=== PATIENT | female | born 1955 | race Caucasian/White ===

== ENCOUNTER 2019-01-13 14:55 | Emergency (ER) | payer BC ==
--- OUTSIDE RECORDS SUMMARY | 2019-01-13 15:12 | XMS REPORT | Continuity of Care Document ---
:1955 External Reference #:[id number] Author Name Idalia Anderson Care Team Providers Name Role Phone Kyra De Leon MD Primary Care Physician Unavailable Payers Date Identification Numbers Payment Provider Subscriber Policy Number: [id number] [facility] Yareli Nelson PayID: [id number] [address] [place] [address] Advance Directives Type Date Description Status Comment Other Directive 02/05/2016 Health Care Proxy Current and Verified Problems Active Problems Provider Date Osteoarthritis Kyra De Leon M.D. Onset: 11/16/2015 Note: hip,hands Essential hypertension Kyra De Leon M.D. Onset: 11/16/2015 Non-toxic multinodular goiter Kyra De Leon M.D. Onset: 12/14/2015 Localized, primary osteoarthritis of the Kika Workman M.D. Onset: 12/17/2015 pelvic region and thigh Microscopic hematuria Kyra De Leon M.D. Onset: 01/18/2016 Note: Dr. Farr ( q 6 months ) noted a small benign angioma in the posterior bladder wall Osteopenia Kyra De Leon M.D. Onset: 03/02/2016 Tubular adenoma Kyra De Leon M.D. Onset: 03/05/2018 Cervicovaginal cytology: Low grade squamous Kyra De Leon M.D. Onset: 01/29 intraepithelial lesion Resolved Problems Difficulty breathing Tracee Hilton MD Onset: 12/16/2015 Resolved: 07/26/2017 Family History Date Family Member(s) Observation Comments General Diabetes General Glaucoma General cancer General heart disease : (age 82 Father due to Heart also had testicular Years) Disease cancer Father Hypertension Father Heart Disease Mother due to valvular () - lupus heart disease Mother Hypertension Siblings 1 Sister healthy / hearing impairment First Sister 66 Social History Type Date Description Comments Sex Unknown Education Highest Level Completed, Master's Degree Marital Status Lives With Alone 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 Began age 15 Smoking Status Reviewed: 12/31/18 Former Cigarette Smoker Quit 1982; max 1/2-1ppd max. Began age 15 ETOH Use Currently consumes 7 drinks/ weeks alcohol Tobacco Use Start: Unknown End: Patient is a former quit 32 yrs ago , Unknown smoker 1/2-1PPD x 15 years Exercise Type/Frequency Exercises regularly yoga, hiking 3-5x/week kayaking in summer Allergies, Adverse Reactions, Alerts Description No Known Drug Allergies Medications Active Medications SIG Qnty Indications Ordering Date Provider Shingrix intramuscular x 1 1units Kyra De Leon, 11/18/2018 50mcg/0.5ML then repeat in 4 M.D. Suspension Rec months Valacyclovir HCL 1 by mouth every 12 14tabs B00.9 Kyra De Leon, 2018 hours x 3 days, M.D. 500mg Tablets start warren at the onset of outbreak Felodipine ER Take 1 Tablet By 90tabs Kyra De Leon, 05/27/2018 5mg Mouth Every Day M.D. Tablets ER 24HR Celecoxib once a day per pt as 90caps M19.079 Kyra De Leon, 05/20/2018 200mg needed M.D. Capsules Tylenol Extra 1 by mouth as needed Unknown 12/15/2015 Strength 500mg Tablets Calcium 2 by mouth every day Unknown 500mg Tablets Multi Vitamin Daily 1 by mouth every day Unknown Tablets Latanoprost Place 1 Drop Into Unknown 0.005% Both Eyes Every Solution Night Coricidin HBP four times a day as Unknown Cough/Cold needed as directed 4-30mg Tablets History Medications Malarone once a day start 2 20tabs Kyra 07/01/2018 - 250-100mg days prior to travel Elizabeth De Leon 08/09/2018 Tablets and continue for 7 days after return Vivotif 1 cap every other 4caps [facility] 07/01/2018 - Capsules DR day x 4 doses start Elizabeth De Leon 08/09/2018 2 weeks prior to travel Shingrix intramuscular x 1 1units [facility] 05/20/2018 - 50mcg/0.5ML then repeat in 4 Elizabeth De Leon 11/18/2018 Suspension Rec months Augmentin 1 tab by mouth twice 14tabs [facility] 12/25/2016 - 875-125mg a day Elizabeth De Leon 01/01/2017 Tablets Benzonatate as needed at night 10caps J20.9 Kyra 10/04/2016 - 150mg for cough Elizabeth De Leon 12/06/2016 Capsules Doxycycline Hyclate 1 tablet twice a day 14tabs J20.9 Kyra 10/04/2016 - 100mg x 7 days Elizabeth De Leon 12/06/2016 Tablets Meloxicam Take 1 Tablet Every 60tabs M16.12 Kika Workman, 12/17/2015 - 15mg Tablets Day Elizabeth 07/26/2017 Cyclobenzaprine HCL 1 tablet by mouth q8 40tabs M16.12 Kika Workman, 12/16 - 10mg hours as needed Elizabeth 10/25/2016 Tablets muscle spasms A-Wrewjs-V-Cysteine 1 time daily 6caps Kyra 11/04/2015 - 600mg Elizabeth De Leon 11/04/2015 Capsules Esther Pulse N-Acetylcystine [facility] 11/04/2015 - 250-100-10 CoQ10 PQQ Na2 Elizabeth De Leon 09/04/2017 Amlodipine Besylate Take 1 Tablet Every 90tabs I10 Jone Vicente 11/04/2015 - 2.5mg Day Elizabeth Mata 05/27/2018 Tablets Naproxen Sodium 1-2 tabs by mouth Unknown - 220mg every 12 hours when 03/15/2016 Capsules necessary knee pain, swelling. Multi Vitamin Daily Unknown - 10/04/2016 Tablets Magnesium 1 by mouth every day Unknown - 250mg Tablets 07/26/2017 Zinc daily Unknown - 09/04/2017 Vitamin D3 daily Unknown - 09/04/2017 Immune Support Vitamin daily Unknown - C 07/26/2017 Packet Meloxicam Take 1 Tablet Every Unknown - 15mg Tablets Day 05/20/2018 Loratadine once a day for Unknown - 10mg Capsules allergies as needed 05/20/2018 CBD Oil daily ( started Unknown - 12/16/17) at 08/09/2018 Afrin 12 Hour 2 squirts to each Unknown - 0.05% nostril twice a day 11/18/2018 Solution for no more than 5 days Td(Adult),Unspecified Unknown Injection Immunizations CPT Code Status Date Vaccine Lot # [id number] Given 05/20/2018 Influenza Virus Vaccine, Quadrivalent, Split, [id number] Preservative Free [id number] Given 12/27/2016 Tdap - Tetanus/Diptheria/Acellular Pertussis [id number] Given 03/15/2016 Zoster (Zostavax) [id number] Given 03/15/2016 Influenza Virus Vaccine, Quadrivalent, Split, [id number] Preservative Free [id number] Given 04/14/2009 Tdap - Tetanus/Diptheria/Acellular Pertussis Vital Signs Date Vital Result Comment 12/31/2018 8:59am Height 67 inches 5'7" Weight 160.00 lb Heart Rate 64 /min BP Systolic Sitting 118 mmHg BP Diastolic Sitting 66 mmHg Respiratory Rate 14 /min Pain Level 0 O2 % BldC Oximetry 98 % BMI (Body Mass Index) 25.1 kg/m2 12/12/2018 8:47am Height 67 inches 5'7" Weight 165.00 lb Heart Rate 68 /min BP Systolic 119 mmHg BP Diastolic 74 mmHg O2 % BldC Oximetry 100 % BMI (Body Mass Index) 25.8 kg/m2 12/03/2018 8:45am Height 67 inches 5'7" Weight 165.00 lb Heart Rate 67 /min Body Temperature 97.8 F O2 % BldC Oximetry 98 % BMI (Body Mass Index) 25.8 kg/m2 11/18/2018 9:09am Height 67 inches 5'7" Weight 165.00 lb Heart Rate 59 /min BP Systolic Sitting 140 mmHg BP Diastolic Sitting 88 mmHg Pain Level 5 O2 % BldC Oximetry 99 % BMI (Body Mass Index) 25.8 kg/m2 08/26/2018 2:03pm Height 67 inches 5'7" Weight 163.12 lb Heart Rate 80 /min BP Systolic 121 mmHg BP Diastolic 83 mmHg Body Temperature 99.0 F O2 % BldC Oximetry 93 % BMI (Body Mass Index) 25.5 kg/m2 08/09/2018 1:29pm Height 67 inches 5'7" Weight 167.00 lb Heart Rate 67 /min BP Systolic 145 mmHg BP Diastolic 88 mmHg Body Temperature 97.1 F O2 % BldC Oximetry 97 % BMI (Body Mass Index) 26.2 kg/m2 05/27/2018 8:37am Height 67 inches 5'7" Weight 162.00 lb Heart Rate 62 /min BP Systolic 150 mmHg manual Right arm BP Diastolic 90 mmHg manual Right arm BP Systolic Sitting 145 mmHg Right arm BP Diastolic Sitting 84 mmHg Right arm BP Systolic Standing 143 mmHg Left arm BP Diastolic Standing 90 mmHg Left arm O2 % BldC Oximetry 98 % BMI (Body Mass Index) 25.4 kg/m2 05/20/2018 12:44pm Height 67 inches 5'7" Weight 160.00 lb Heart Rate 64 /min BP Systolic Sitting 140 mmHg BP Diastolic Sitting 64 mmHg O2 % BldC Oximetry 99 % BMI (Body Mass Index) 25.1 kg/m2 01/29/2018 1:14pm Height 67 inches 5'7" Weight 158.00 lb Heart Rate 68 /min BP Systolic 124 mmHg BP Diastolic 80 mmHg O2 % BldC Oximetry 98 % BMI (Body Mass Index) 24.7 kg/m2 01/02/2018 3:22pm Weight 159.00 lb with out shoes Heart Rate 72 /min BP Systolic 146 mmHg Rue reg cuff BP Diastolic 84 mmHg Rue reg cuff BP Systolic Sitting 152 mmHg Lue reg cuff BP Diastolic Sitting 74 mmHg Lue reg cuff BP Systolic Standing 152 mmHg Lue reg cuff BP Diastolic Standing 96 mmHg Lue reg cuff Respiratory Rate 14 /min 11/29/2017 1:13pm Height 67 inches 5'7" Weight 160.25 lb Heart Rate 70 /min BP Systolic 140 mmHg BP Diastolic 90 mmHg O2 % BldC Oximetry 97 % BMI (Body Mass Index) 25.1 kg/m2 11/15/2017 12:56pm Height 67 inches 5'7" Weight 159.00 lb Heart Rate 63 /min BP Systolic Sitting 124 mmHg BP Diastolic Sitting 90 mmHg O2 % BldC Oximetry 98 % BMI (Body Mass Index) 24.9 kg/m2 09/04/2017 11:56am Weight 157.00 lb Heart Rate 68 /min BP Systolic Sitting 123 mmHg BP Diastolic Sitting 84 mmHg O2 % BldC Oximetry 98 % 07/26/2017 10:54am Weight 156.00 lb Heart Rate 66 /min BP Systolic Sitting 148 mmHg BP Diastolic Sitting 84 mmHg O2 % BldC Oximetry 98 % 12/06/2016 10:06am Weight 160.00 lb Heart Rate 67 /min BP Systolic 132 mmHg BP Diastolic 76 mmHg Body Temperature 97.6 F O2 % BldC Oximetry 99 % 10/04/2016 8:51am Weight 161.00 lb Heart Rate 76 /min BP Systolic Sitting 130 mmHg BP Diastolic Sitting 82 mmHg Respiratory Rate 14 /min Body Temperature 97.8 F O2 % BldC Oximetry 98 % 05/16/2016 10:18am Weight 160.00 lb Heart Rate 72 /min BP Systolic Sitting 148 mmHg BP Diastolic Sitting 92 mmHg Body Temperature 97.7 F O2 % BldC Oximetry 99 % 03/15/2016 8:44am Heart Rate 78 /min BP Systolic Sitting 136 mmHg L arm BP Diastolic Sitting 86 mmHg L arm BP Systolic Standing 142 mmHg R arm BP Diastolic Standing 88 mmHg R arm 02/29/2016 9:11am Height 67 inches 5'7" Weight 157.00 lb BP Systolic 126 mmHg BP Diastolic 72 mmHg Body Temperature 98.3 F BMI (Body Mass Index) 24.6 kg/m2 2016 9:38am Height 67 inches 5'7" Weight 161.00 lb Heart Rate 68 /min BP Systolic 120 mmHg BP Diastolic 82 mmHg Respiratory Rate 14 /min O2 % BldC Oximetry 97 % BMI (Body Mass Index) 25.2 kg/m2 01/24/2016 10:35am Height 67 inches 5'7" Weight 161.00 lb Pain Level 4 BMI (Body Mass Index) 25.2 kg/m2 12/17/2015 8:23am Height 67 inches 5'7" Weight 161.00 lb Heart Rate 64 /min BP Systolic 127 mmHg BP Diastolic 79 mmHg BMI (Body Mass Index) 25.2 kg/m2 12/16/2015 2:04pm Height 67 inches 5'7" Weight 160.25 lb Heart Rate 67 /min BP Systolic Sitting 132 mmHg BP Diastolic Sitting 77 mmHg Respiratory Rate 16 /min O2 % BldC Oximetry 98 % BMI (Body Mass Index) 25.1 kg/m2 Neck Circumference in inches 14 11/16/2015 8:27am Weight 163.00 lb Heart Rate 67 /min BP Systolic Sitting 131 mmHg BP Diastolic Sitting 80 mmHg Body Temperature 97.7 F 11/10/2015 8:56am Height 67 inches 5'7" Weight 161.00 lb Heart Rate 74 /min 90 BP Systolic 134 mmHg left arm, reg cuff BP Diastolic 90 mmHg left arm, reg cuff BP Systolic Sitting 132 mmHg right arm, reg cuff BP Diastolic Sitting 92 mmHg right arm, reg cuff BP Systolic Standing 120 mmHg right arm, reg cuff BP Diastolic Standing 92 mmHg right arm, reg cuff Respiratory Rate 20 /min BMI (Body Mass Index) 25.2 kg/m2 11/04/2015 9:26am Weight 163.00 lb Heart Rate 100 /min BP Systolic Sitting 173 mmHg BP Diastolic Sitting 100 mmHg Body Temperature 97.2 F Results Test Date Facility Test Result H/L Range Note Laboratory test 12/12/2018 [facility] Cytology SEE RESULT [address] [place] [address] [phone] Basic Metabolic 06/25/2018 [facility] Sodium 140 mmol/L N 135- [address] [place] [address] [phone] Potassium 4.5 mmol/L N 3.5-5.0 Chloride 105 mmol/L N 101-111 Co2 Carbon Dioxide 30 mmol/L N 22-32 Anion Gap 5 mmol/L N 2-11 Glucose 93 mg/dL N 70-100 Blood Urea Nitrogen 17 mg/dL N 6-24 Creatinine 0.72 mg/dL N 0.51-0.95 BUN/Creatinine Ratio 23.6 High 8-20 Calcium 9.5 mg/dL N 8.6-10.3 Egfr Non- 81.6 >60 Egfr 98.7 >60 2 Hepatitis C Antibody 06/25/2018 [facility] HCV Index < 0.[address] [place] [address] [phone] Hepatitis C Antibody Nonreactive Nonreactive Laboratory test 03/04/2018 [facility] Surgical SEE RESULT [address] [place] [address] Order [phone] Laboratory test 01/29/2018 [facility] Surgical SEE RESULT [address] [place] [place] [address] [phone] Laboratory test 11/15/2017 [facility] Cytology SEE RESULT [address] [place] [place], [place] [id number] [phone] HPV 16, 18/45 11/15/2017 [facility] HPV 16 Negative Negative Genotype [address] Genotype [place], [place] [address] [phone] HPV 18/45 Genotype Negative Negative Basic Metabolic Panel 07/26/2017 [facility] Sodium 140 mmol/L N 133-[address] [place], [place] [address] [phone] Potassium 4.1 mmol/L N 3.5-5.0 Chloride 105 mmol/L N 101-111 Co2 Carbon Dioxide 30 mmol/L N 22-32 Anion Gap 5 mmol/L N 2-11 Glucose 96 mg/dL N 70-100 Blood Urea Nitrogen 15 mg/dL N 6-24 Creatinine 0.77 mg/dL N 0.51-0.95 BUN/Creatinine Ratio 19.5 N 8-20 Calcium 9.4 mg/dL N 8.6-10.3 Egfr Non- 75.7 >60 Egfr 97.4 >60 6 Laboratory test 12/06/2016 [facility] Trichomonas Negative N Negative [address] Vaginalis Rna [place], [place] [address] [phone] GC/Chlamydia 12/06/2016 [facility] Chlamydia Negative N Negative Amplified Rna [address] [place] [address] [phone] Neisseria gonorrhoeae (GC) Rna Negative N Negative Laboratory 12/06/2016 [facility] Gardnerella/Yeast: SEE RESULT 8 test finding [address] Vaginal Dna BELOW [place], [place] [address] [phone] Lipid Profile 02/22/2016 [facility] Triglycerides 138 mg/dL N 9, 10 (Trig/Chol/HDL [address] ) [place], [place] [id number] [phone] Cholesterol 216 mg/dL N 11 HDL Cholesterol 63.4 mg/dL N 12 LDL Cholesterol 125 mg/dL N 13 Urinalysis Profile 11/05/2015 [facility] Urine Color Yellow N [address] [place] [address] [phone] Urine Appearance Clear N Urine Specific [place] 1.018 N 1.010-1.030 Urine pH 7.0 N 5-9 Urine Urobilinogen Negative N Negative Urine Ketones Negative N Negative Urine Protein Negative N Negative Urine Leukocytes Negative N Negative Urine Blood 1+ Abnormal Negative Urine Nitrite Negative N Negative Urine Bilirubin Negative N Negative Urine Glucose Negative N Negative Urine White Blood Cell Absent N Absent Urine Red Blood Cell 2+(6-10/hpf) Abnormal Absent Urine Bacteria Absent N Absent Urine Squamous Epithelial Cell Present Abnormal Absent Laboratory test 11/05/2015 [facility] Hemoglobin A1c 5.2 % N Less than [address] (Glyco HGB) 6.0 [place] [address] [phone] TSH (Thyroid Stim Horm) 1.76 ?IU/mL N 0.34-5.60 15 Comp Metabolic Panel 11/05/2015 [facility] Sodium 139 mmol/L N 133-[address] [place] [address] [phone] Potassium 4.3 mmol/L N 3.5-5.0 Chloride 104 mmol/L N 101-111 Co2 Carbon Dioxide 31 mmol/L N 22-32 Anion Gap 4 mmol/L N 2-11 Glucose 89 mg/dL N 70-100 Blood Urea Nitrogen 18 mg/dL N 6-24 Creatinine 0.77 mg/dL N 0.51-0.95 BUN/Creatinine Ratio 23.4 High 8-20 Calcium 9.5 mg/dL N 8.6-10.3 Total Protein 6.8 g/dL N 6.4-8.9 Albumin 4.6 g/dL N 3.2-5.2 Globulin 2.2 g/dL N 2-4 Albumin/Globulin Ratio 2.1 N 1-3 Total Bilirubin 0.60 mg/dL N 0.2-1.0 Alkaline Phosphatase 69 U/L N 34-104 Alt 12 U/L N 7-52 Ast 17 U/L N 13-39 Egfr Non- 76.2 N >60 Egfr 98.0 N >60 16 Laboratory test 11/05/2015 [facility] Erythrocyte Sed 10 mm/Hr N 0-30 [address] [place] [address] [phone] Anti Nuclear Antibody 0.7 U N 18 Rheumatoid Factor <15 IU/mL N <15 19 CBC Auto Diff 11/05/2015 [facility] White Blood 3.9 10^3/uL N 3.5-10.[address] [place] [address] [phone] Red Blood Count 4.24 10^6/uL N 4.0-5.4 Hemoglobin 13.6 g/dL N 12.0-16.0 Hematocrit 40 % N 35-47 Mean Corpuscular Volume 95 fL N 80-97 Mean Corpuscular Hemoglobin 32 pg High 27-31 Mean Corpuscular HGB Conc 34 g/dL N 31-36 Red Cell Distribution Width 13 % N 10.5-15 Platelet Count 262 10^3/uL N 150-450 Mean Platelet Volume 8 um3 N 7.4-10.4 Abs Neutrophils 1.9 10^3/uL N 1.5-7.7 Abs Lymphocytes 1.5 10^3/uL N 1.0-4.8 Abs Monocytes 0.3 10^3/uL N 0-0.8 Abs Eosinophils 0.1 10^3/uL N 0-0.6 Abs Basophils 0 10^3/uL N 0-0.2 Abs Nucleated RBC 0.01 10^3/uL N Granulocyte % 49.5 % N 38-83 Lymphocyte % 38.2 % N 25-47 Monocyte % 8.4 % N 1-9 Eosinophil % 3.1 % N 0-6 Basophil % 0.8 % N 0-2 Nucleated Red Blood Cells % 0.3 N 1 SEE RESULT BELOW Name: YARELI NELSON : [address]: Kennedy Amaya MD Acct: [id number] Unit: [id number] AGE: 63 Location: [facility] Re12/12/18 SEX: F Status: REG REF SPEC: [id number] JAYRO: 12/12/18 [facility] DR: Kennedy Amaya MD REQ: [id number] RECD: 12/12/18 STATUS: SOUT _ ORDERED: TP IMAGE ANALYS, HPV/Thin Prep COMMENTS: [id number] Negative for Intraepithelial lesion or Malignancy Date Time Test Result Flag (u) Normal Range 12/12/18 0852 HPV RNA POSITIVE An Negative The high-risk HPV types detected by the assay include: 16, 18, 31, 33, 35, 39, 45, 51, 52, 56, 58, 59, 66, and 68. A. Ectocervical/Endocervical Specimen Adequacy: Satisfactory of evaluation Transformation zone component identified Patient Information: HPV: High risk HPV RNA testing regardless of pap results. Actual Specimen Date: 12/12/18 ?: N Post Menopausal?: Y Hysterectomy?: N Previous Abnormal Pap Smears?:Y If Yes, enter Diagnosis: Low grade squamous intraepithelial lesion. Signed by and Reported on: ABIMAEL Giles (ASCP) 1410 This Pap test was evaluated with the assistance of the LeadPointPrep Test Imaging System. Due to cytologic findings at the gun stocker microscope, comprehensive manual rescreening by a Truck Driver'S Offsider may be required. The Pap Smear is a screening test designed to aid in the detection of premalignant and malignant conditions of the uterine cervix. It is not a diagnostic procedure and should not be used as the sole means of detecting cervical cancer. Both false- positive and false- negative reports do occur. Depending on your risk status, a Pap smear should be obtained and evaluated every 1-3 years. END OF REPORT DEPARTMENT OF PATHOLOGY, [address] [place] [address] Frankie James M.D. Director [facility] # [id number] 2 Because ethnic data is not always readily available, this report includes an eGFR for both -Americans and non- Americans. The National Kidney Disease Education Program (NKDEP) does not endorse the use of the MDRD equation for patients that are not between the ages of 18 and 70, are , have extremes of body size, muscle mass, or nutritional status, or are non- or non-. According to the National Kidney Foundation, irrespective of diagnosis, the stage of the disease is based on the level of kidney function: Stage Description GFR(mL/min/1.73 m(2)) 1 Kidney damage with normal or decreased GFR 90 2 Kidney damage with mild decrease in GFR 60-89 3 Moderate decrease in GFR 30-59 4 Severe decrease in GFR 15-29 5 Kidney failure <15 (or dialysis) 3 SEE RESULT BELOW Name: YARELI NELSON : [address]: John Odell MD Acct: [id number] Unit: [id number] AGE: 63 Location: ENDO Re03/04/18 SEX: F Status: DEP REF SPEC: [id number] JAYRO: 03/04/18- [facility] DR: John Odell MD REQ: [id number] RECD: 03/04/18 STATUS: JT HERNANDEZ DR: Kyra De Leon MD _ ORDERED: LEVEL 4/2 FINAL DIAGNOSIS 1. Colon, at 30 cm, biopsy: -- Tubular adenoma. -- No high grade dysplasia or malignancy. 2. Colon, at 15 cm, biopsy: -- Hyperplastic polyp. CLINICAL HISTORY History of polyps POST-OPERATIVE DIAGNOSIS Colonoscopy: to hepatic flexure; no colon tone; too large loop; polyp at 15 cm ? biopsy; at 30 cm ? snare; patient pushing GROSS DESCRIPTION 1. The specimen is received in formalin labeled, Polyp at 30 cm, and consists of two gutierrez-pink irregular to polypoid soft tissue fragments measuring 0.3 x 0.2 x 0.1 cm and 0.4 x 0.3 x 0.2 cm which are submitted entirely in one cassette. 2. The specimen is received in formalin labeled, Biopsy Polyp at 15 cm, and consists of a 0.4 x 0.3 x 0.2 cm gutierrez-pink polypoid soft tissue fragment which is submitted entirely in one cassette. Signed by and Reported on: Nida Xinog MD 03/05/18 1229 END OF REPORT DEPARTMENT OF PATHOLOGY, [address] [place] [address] Frankie James M.D. Director [facility] # [id number] 4 SEE RESULT BELOW Name: YARELI NELSON : [address]: Kennedy Amaya MD Acct: [id number] Unit: [id number] AGE: 62 Location: [facility] Re01/29/18 SEX: F Status: REG REF SPEC: [id number] JAYRO: 01/29/18-[address] [facility] [address]: Kennedy Amaya MD REQ: [id number] RECD: 01/29/184014 STATUS: SOUT _ ORDERED: LEVEL 4/2 COMMENTS: [id number] FINAL DIAGNOSIS 1. Uterus, cervix, 4:00, biopsy: -- Cervical tissue with HPV-related viral cytopathic effect and low-grade squamous dysplasia (CHERISE-1/LSIL). 2. Uterus, endocervix, curettage: -- Benign endocervical mucosa with no significant pathologic abnormalities. PRE-OPERATIVE DIAGNOSIS Low grade pap 11/2017, positive high risk human papilloma virus GROSS DESCRIPTION 1. The specimen is received in formalin labeled, 4:00, and consists of two white red irregular soft tissue fragments averaging 0.3 x 0.3 x 0.2 cm admixed with scant translucent mucus, which are filtered and entirely submitted in one cassette. 2. The specimen is received in formalin labeled, ECC, and consists of a 0.8 x 0.6 by up to 0.3 cm aggregate of opalescent mucus admixed with scant gutierrez-pink irregular soft tissue fragments, which is filtered and entirely submitted in one cassette. Signed by and Reported on: Nida Xiong MD 01/30/18 1121 END OF REPORT DEPARTMENT OF PATHOLOGY, [address] [place] [address] Frankie James M.D. Director [facility] # [id number] 5 SEE RESULT BELOW Name: YARELI NELSON : [address]: Kyra De Leon MD Acct: [id number] Unit: [id number] AGE: 62 Location: [facility] Re11/15/17 SEX: F Status: REG REF SPEC: [id number] JAYRO: 11/15/17-[address] [facility] [address]: Kyra De Leon MD REQ: [id number] RECD: 11/16/17 STATUS: SOUT _ ORDERED: TP IMAGE ANALYS, DIRECTOR MANUFACTURING ENGINEERING PHYS INTERP, HPV/Thin Prep, HPV 16/18 GENE COMMENTS: [id number] EPITHELIAL CELL ABNORMALITIES Low grade squamous intraepithelial lesion (LSIL) A. Ectocervical/Endocervical Specimen Adequacy: Satisfactory of evaluation Transformation zone component cannot be definitely identified due to presence of atrophy or other hormonal changes Patient Information: HPV: High risk HPV RNA testing regardless of pap results. HPV 16/18 Genotype Reflex Actual Specimen Date: 11/15/17 Post Menopausal?: Y Date Time Test Result Flag (u) Normal Range 11/15/17 1416 @ HPV RNA RFLX GE POSITIVE An Negative @ @ The high-risk HPV types detected by the assay include: 16, @ 18, 31, 33, 35, 39, 45, 51, 52, 56, 58, 59, 66, and 68. Signed by and Reported on: Frankie James MD 11/02 1478 This Pap test was evaluated with the assistance of the LeadPointPrep Test Imaging System. Due to cytologic findings at the gun stocker microscope, comprehensive manual rescreening by a Truck Driver'S Offsider may be required. The Pap Smear is a screening test designed to aid in the detection of premalignant and malignant conditions of the uterine cervix. It is not a diagnostic procedure and should not be used as the sole means of detecting cervical cancer. Both false- positive and false- negative reports do occur. Depending on your risk status, a Pap smear should be obtained and evaluated every 1-3 years. END OF REPORT DEPARTMENT OF PATHOLOGY, [address] [place] [address] Frankie James M.D. Director [facility] # [id number] 6 Because ethnic data is not always readily available, this report includes an eGFR for both -Americans and non- Americans. The National Kidney Disease Education Program (NKDEP) does not endorse the use of the MDRD equation for patients that are not between the ages of 18 and 70, are , have extremes of body size, muscle mass, or nutritional status, or are non- or non-. According to the National Kidney Foundation, irrespective of diagnosis, the stage of the disease is based on the level of kidney function: Stage Description GFR(mL/min/1.73 m(2)) 1 Kidney damage with normal or decreased GFR 90 2 Kidney damage with mild decrease in GFR 60-89 3 Moderate decrease in GFR 30-59 4 Severe decrease in GFR 15-29 5 Kidney failure <15 (or dialysis) 7 [id number] GC/Chlamydia Source?: Endocervical Trichomonas Source: Endocervical 8 SEE RESULT BELOW Name: YARELI NELSON : [address]: Kyra De Leon MD Acct: [id number] Unit: [id number] AGE: 61 Location: [facility] Re12/06/16 SEX: F Status: REG REF SPEC: [id number] JAYRO: 12/06/16-10[address] [facility] [address]: Kyra De Leon MD REQ: [id number] RECD: 12/06/[id number] STATUS: COMP _ SOURCE: VAGINAL SPDESC: ORDERED: Jeanmarie,Yeast DNA COMMENTS: [id number] Procedure Result Reported Site Gardnerella/Yeast: Vaginal DNA Final 12/07/16- 1258 ML Organism 1 Negative Gardnerella Organism 2 Negative Marleni The presence of G. vaginalis, although suggestive, is not diagnostic for bacterial vaginosis. Results should be interpreted in conjuction with other clinical and laboratory data available. Women with vaginal discharge should be evaluated for risk factors of cervicitis and pelvic inflammatory disease, toxic shock syndrome (S.aureus), and if present, evaluated for organisms not included in this assay such as N. gonorrhoeae, C. trachomatis, Mobiluncus, Mycoplasma and/or Prevotella. Mixed infections may occur. The performance of this test on patient specimens collected during or immediately after antimicrobial therapy is unknown. The presence or absence of Marleni species, or G. vaginalis cannot be used as a test for therapeutic success or failure. * ML - MAIN LAB ([facility]) . END OF REPORT * ML=Testing performed at Main Lab DEPARTMENT OF PATHOLOGY, [address] [place] [address] Frankie James M.D. Director [facility] # [id number] 9 FASTING 10 Desirable <150 Borderline high 150-199 High 200-499 Very High >500 11 Desirable <200 Borderline high 200-239 High >239 12 Low <40 Desirable: 40-60 High: >60 13 Desirable: <100 mg/dL Near Optimal: 100-129 mg/dL Borderline High: 130-159 mg/dL High: 160-189 mg/dL Very High: >189 mg/dL 14 Therapeutic target for the treatment of diabetes Mellitus patients is <7% HBA1C, and in selective patients <6.0%.Please refer to [place] [employer] Association Diabetic care guidelines for further information. 15 FASTING 10 HOUR 16 Because ethnic data is not always readily available, this report includes an eGFR for both -Americans and non- Americans. The National Kidney Disease Education Program (NKDEP) does not endorse the use of the MDRD equation for patients that are not between the ages of 18 and 70, are , have extremes of body size, muscle mass, or nutritional status, or are non- or non-. According to the National Kidney Foundation, irrespective of diagnosis, the stage of the disease is based on the level of kidney function: Stage Description GFR(mL/min/1.73 m(2)) 1 Kidney damage with normal or decreased GFR 90 2 Kidney damage with mild decrease in GFR 60-89 3 Moderate decrease in GFR 30-59 4 Severe decrease in GFR 15-29 5 Kidney failure <15 (or dialysis) 17 FASTING 10 HOUR 18 REFERENCE VALUE <=1.0 (Negative) Test Performed by: [address] [address] [employer] Receiver: Ryan Olivares II, M.D., Ph.D. 19 Test Performed by: [facility] [address] [place] [address] [employer] Receiver: Ryan Olivares II, M.D., Ph.D. Procedures Date Code Description Status 09/23/2018 [id number] Mammogram Completed 03/04/2018 [id number] Colonoscopy Completed 01/29/2018 81506 Colposcopy W/Biopsy Cervix/Endocervical Curettage Completed 01/02/2018 86616 EKG Tracing & Interpretation Completed 11/19/2017 64344 ECHO Transthoracic, Real-Time 2D With Doppler And Completed Color Flow 11/19/2017 16154 ECHO Transthoracic, Real-Time 2D With Doppler And Completed Color Flow 08/29/2017 [id number] Mammogram Completed 07/26/2017 91757 EKG Tracing & Interpretation Completed 06/14/2016 [id number] Mammogram Completed 03/02/2016 [id number] Bone Mineral Density Test Completed 01/17/2016 19305 Sleep Study Unattended,HRT Rate,Oxygen Sat,Resp Completed Effort/Airflow 11/10/2015 91885 EKG Tracing & Interpretation Completed 11/04/2015 33931 EKG Tracing & Interpretation Completed 02/16/2015 [id number] Mammogram Completed 02/16/2011 [id number] Colonoscopy Completed Encounters Type Date Location Provider Dx Diagnosis Office Visit 12/12[facility] Amaya MD R87.612 Low grade 8:30a [facility] intrepith lesion cyto smr crvx (LGSIL) R87.810 Cervical high risk HPV Dna test positive Office Visit 12/03/2018 [facility] 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 ankle and foot Office Visit 11/18/2018 [facility] Internal Kyra Z00.00 Encntr for general 9:10a Ezekiel De Leon M.D. adult medical exam w/o abnormal findings R87.612 Low grade intrepith lesion cyto smr crvx (LGSIL) M79.672 Pain in left foot B00.9 Herpesviral infection, unspecified Office Visit 08/26/2018 [facility] Internal Jone Vicente J06.9 Acute upper 2:00p Gudelia Mata M.D. respiratory infection, unspecified Office Visit 08/09/2018 [facility] Internal Kristen Gonzalez, M54.12 Radiculopathy, 1:20p Gudelia JERRY cervical region I10 Essential (primary) hypertension Office Visit 05/20/2018 [facility] Kyra I10 Essential 12:10p Gudelia De Leon M.D. (primary) hypertension M13.0 Polyarthritis, unspecified Z23 Encounter for immunization Z11.59 Encounter for screening for other viral diseases Z02.9 Encounter for administrative examinations, unspecified Office Visit 01/02/2018 Lance Conrad I47.1 Supraventricular 3:00p [facility], tachycardia [facility] FAC R94.39 Abnormal result of other cardiovascular function study Office Visit 11/29/2017 1:00p [facility] Amaya, R87.612 Low grade [facility] JERRY intrepith lesion cyto smr crvx (LGSIL) R87.810 Cervical high risk HPV Dna test positive Office Visit 11/15/2017 [facility] Internal Kyra Z00.01 Encounter for 1:00p Gudelia De Leon M.D. general adult medical exam w abnormal findings Z12.4 Encounter for screening for malignant neoplasm of cervix R01.1 Cardiac murmur, unspecified M79.671 Pain in right foot M79.672 Pain in left foot Office 09/04/2017 [facility] Kyra I10 Essential Visit 12:10p Gudelia De Leon M.D. (primary) hypertension Office 07/26/2017 [facility] Kyra Z01.818 Encounter for Visit 11:10a Gudelia De Leon M.D. other preprocedural examination H02.403 Unspecified ptosis of bilateral eyelids I10 Essential (primary) hypertension J06.9 Acute upper respiratory infection, unspecified M16.12 Unilateral primary osteoarthritis, left hip E04.2 Nontoxic multinodular goiter Z12.31 Encntr screen mammogram for malignant neoplasm of breast Office Visit 12/06/2016 [facility] Kyra Z11.3 Encntr screen 10:10a Gudelia De Leon M.D. for infections w sexl mode of transmiss R21 Rash and other nonspecific skin eruption Office Visit 10/04/2016 [facility] Kyra J20.9 Acute 8:50a Gudelia De Leon M.D. bronchitis, unspecified R05 Cough Office Visit 03/15/2016 [facility] Internal Nurse Visit I10 Essential 8:30a Gudelia Mullen (primary) hypertension Z23 Encounter for immunization Office Visit 02/29/2016 [facility] Internal Kyra Z00.01 Encounter for 9:10a Medicine-Jessica De Leon M.D. general adult medical exam w abnormal findings I10 Essential (primary) hypertension Z13.820 Encounter for screening for osteoporosis N64.59 Other signs and symptoms in breast Office Visit 2016 9:30a Pulmonology And Tracee R06.83 Snoring Sleep [facility] Office Visit 01/24/2016 9:45a Orthopedic Kika Ji, M16.12 Unilateral Services Of Jordy Johnson primary osteoarthritis, left hip M25.552 Pain in left hip Office Visit 12/17/2015 Orthopedic Kika M16.12 Unilateral primary 8:00a [facility] Elizabeth Workman osteoarthritis, left C.M.A. hip M16.11 Unilateral primary osteoarthritis, right hip M25.551 Pain in right hip M25.552 Pain in left hip M79.672 Pain in left foot M79.671 Pain in right foot Office Visit 12/16/2015 2:00p Pulmonology And Tracee R06.83 Snoring Sleep [facility] Office Visit 11/16/2015 8:30a [facility] Internal Kyra I10 Essential Medicine - Israel De Leon M.D. 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 M16.9 Osteoarthritis of hip, unspecified I73.9 Peripheral vascular disease, unspecified M70.42 Prepatellar bursitis, left knee Office Visit 11/10/2015 9:00a [facility] Barbara Xiong Dizziness and Of Physician Obstetrician AT [facility] MD Rasta, giddiness FAC, FSCAI I47.1 Supraventricular tachycardia I10 Essential (primary) hypertension Office Visit 11/04/2015 9:50a [facility] Internal KyraInga Vasquez Dizziness and Medicine - Israel Johnson giddiness M25.552 Pain in left hip R73.01 Impaired fasting glucose R31.2 Other microscopic hematuria R06.83 Snoring M79.643 Pain in unspecified hand I10 Essential (primary) hypertension Plan of Treatment Future Appointment(s):01/08/2019 10:00 am - Blaine Garcia MD at [facility]01/20/2019 1:15 pm - Kika Workman M.D. at [facility]05/22/2019 10:10 am - Kyra De Leon M.D. at [facility] Internal Medicine - Ccmob12/31/2018 - Blaine Cheney M.D.M19.172 Post-traumatic osteoarthritis, left ankle and footFollow up:dr garcia left [facility]
[2019-01-13 15:47] LABS: ABS Eosinophils 0.1 10^3/ul (0-0.6); ABS Lymphocytes 1.9 10^3/ul (1.0-4.8); ABS Monocytes 0.5 10^3/ul (0-0.8); ABS Neutrophils 3.3 10^3/ul (1.5-7.7); Eosinophil % 1.4 %; Hematocrit 39 % (35-47); Hemoglobin 13.8 g/dL (12.0-16.0); Mean Corpuscular HGB Conc 35 g/dL (31-36); Mean Corpuscular Hemoglobin 33 pg (27-31); Mean Corpuscular Volume 94 fL (80-97); Mean Platelet Volume 7.3 fL (7.4-10.4); Platelet Count 262 10^3/uL (150-450); Red Blood Count 4.21 10^6 /uL (3.70-4.87); Red Cell Distribution Width 13 % (10-15); White Blood Count 5.9 10^3/uL (3.5-10.8)
[2019-01-13 16:18] LABS: Albumin 4.5 g/dL (3.2-5.2); BUN/Creatinine Ratio 24.4 (8-20); Calcium 9.9 mg/dL (8.6-10.3); EGFR African American 84.9 (>60); EGFR Non-African American 70.2 (>60); Globulin 2.3 g/dL (2-4); Potassium 4.1 mmol/L (3.5-5.0); Total Bilirubin 0.6 mg/dL (0.2-1.0); Total Protein 6.8 g/dL (6.4-8.9)
--- NOTE | 2019-01-13 18:15 | ED ---
HPI Cardiac - HPI Summary HPI Summary: Patient is a 63 y/o F presenting to ED with complaints of left anterior chest pain. She reports that she had one episode yesterday of the chest pain which lasted 10-15 minutes. Radiation of pain down left arm is noted as well. Chest pain was not pleuritic. Today, she had another episode around 0430 this morning , noting she was awoken from sleep with Sx. Episode lasted 20 minutes and spontaneously resolved. SOB is denied. She notes that she had left calf pain as well which is resolved. No cough, no fevers reported. She denies FMHx of SC. No Hx of HLD or diabetes, but endorses Hx of HTN. Patient does not report chills, erythema of eyes, sore throat, abdominal pain, N/V, dysuria, hematuria, myalgia , edema, rash, or dizziness. On triage, pain is rated 0/10, stress is noted to aggravate Sx. Home medications and allergies are reviewed. - History of Current Complaint Chief Complaint: EDChestPainROMI Stated Complaint: CHEST PAIN/LT ARM NUMBNESS Time Seen by Provider: 01/13/19 15:27 Hx Obtained From: Patient Onset/Duration: Resolved Timing: Intermittent, Lasting Minutes Current Severity: None Pain Intensity: 0 Pain Scale Used: 0-10 Numeric Chest Pain Location: Left Anterior Chest Pain Radiates: Yes Chest Pain Radiates To:: Arm - left Aggravating Factor(s): Nothing Alleviating Factor(s): Nothing Associated Signs and Symptoms: Positive: Chest Pain, Calf Pain/Swelling, Other: - does not report chills, erythema of eyes, sore throat, abdominal pain, N/V, dysuria, hematuria, myalgia, edema, rash, or dizziness.. Negative: Dizziness, Shortness of Breath, Fever, Chills, Nausea, Cough, Productive Cough, Nonproductive Cough, Abdominal Pain, Vomiting - Allergy/Home Medications Allergies/Adverse Reactions: Allergies Allergy/AdvReac Type Severity Reaction Status Date / Time No Known Allergies Allergy Verified 01/13/19 15:07 Home Medications: Home Medications Felodipine (NF) [Plendil (NF)] 5 mg PO DAILY PRN 01/13/19 [History Confirmed ] celeCOXIB CAP* [CeleBREX CAP*] 100 mg PO DAILY PRN 01/13/19 [History Confirmed 01/13/19] PMH/Surg Hx/FS Hx/Imm Hx Endocrine/Hematology History: Denies: Hx Diabetes Cardiovascular History: Reports: Hx Hypertension Denies: Hx Hypercholesterolemia, Hx Pacemaker/ICD History: Denies: Hx Renal Disease Musculoskeletal History: Denies: Hx Osteoporosis Sensory History: Denies: Hx Hearing Aid Psychiatric History: Denies: Hx Panic Disorder - Cancer History Hx Chemotherapy: No Hx Radiation Therapy: No - Surgical History Surgery Procedure, Year, and Place: APPENDECTOMY - Immunization History Immunizations Up to Date: Yes Infectious Disease History: No Infectious Disease History: Reports: Traveled Outside the [place] in Last 30 Days - [place] - Family History Known Family History: Negative: Cardiac Disease - Social History Alcohol Use: Daily Alcohol Amount: 1 cocktail a night or half a bottle of wine Substance Use Type: Reports: Marijuana Substance Use Comment - Amount & Last Used: 01/11/19 Smoking Status (MU): Former Smoker Review of Systems Negative: Fever, Chills Negative: Erythema Negative: Sore Throat Positive: Chest Pain Negative: Shortness Of Breath, Cough Negative: Abdominal Pain, Vomiting, Nausea Negative: dysuria, hematuria Positive: Myalgia - positive - calf pain on left. Negative: Edema Negative: Rash Neurological: Other - negative - dizziness All Other Systems Reviewed And Are Negative: Yes Physical Exam - Summary Physical Exam Summary: Constitutional: Well-developed, Well-nourished, Alert. (-) Distressed Skin: Warm, Dry HENT: Normocephalic; Atraumatic Eyes: Conjunctiva normal Neck: Musculoskeletal ROM normal neck. (-) JVD, (-) Stridor, (-) Tracheal deviation Cardio: Rhythm regular, rate normal, Heart sounds normal; Intact distal pulses; The pedal pulses are 2+ and symmetric. Radial pulses are 2+ and symmetric. (-) Murmur Pulmonary/Chest wall: Effort normal. (-) Respiratory distress, (-) Wheezes, (-) Rales Abd: Soft, (-) tenderness, (-) Distension, (-) Guarding, (-) Rebound Musculoskeletal: (-) Edema, calfs are symmetrical and non-tender. Lymph: (-) Cervical adenopathy Neuro: Alert, Oriented x3 Psych: Mood and affect Normal Triage Information Reviewed: Yes Vital Signs On Initial Exam: Initial Vitals Temp Pulse Resp BP Pulse Ox 98.1 F 83 18 145/77 98 01/13/19 15:03 01/13/19 15:03 01/13/19 15:03 01/13/19 15:03 01/13/19 15:03 Vital Signs Reviewed: Yes Diagnostics - Vital Signs Vital Signs Temp Pulse Resp BP Pulse Ox 01/13/19 17:03 66 16 157/97 98 01/13/19 16:23 76 22 149/94 95 01/13/19 16:00 76 17 92 01/13/19 15:53 74 16 139/92 94 01/13/19 15:25 76 18 95 01/13/19 15:23 75 15 150/93 96 01/13/19 15:03 98.1 F 83 18 145/77 98 - Laboratory Lab Results: Lab Results 01/13/19 01/13/19 01/13/19 Range/Units 15:37 15:37 15:37 WBC 5.9 (3.5-10.8) 10^3/uL RBC 4.21 (3.70-4.87) 10^6 /uL Hgb 13.8 (12.0-16.0) g/dL Hct 39 (35-47) % MCV 94 (80-97) fL MCH 33 H (27-31) pg MCHC 35 (31-36) g/dL RDW 13 (10-15) % Plt Count 262 (150-450) 10^3/uL MPV 7.3 L (7.4-10.4) fL Neut % (Auto) 56.9 % Lymph % (Auto) 32.0 % [place] % (Auto) 9.2 % Eos % (Auto) 1.4 % Baso % (Auto) 0.5 % Absolute Neuts (auto) 3.3 (1.5-7.7) 10^3/ul Absolute Lymphs (auto) 1.9 (1.0-4.8) 10^3/ul Absolute Monos (auto) 0.5 (0-0.8) 10^3/ul Absolute Eos (auto) 0.1 (0-0.6) 10^3/ul Absolute Basos (auto) 0.0 (0-0.2) 10^3/ul Absolute Nucleated RBC 0.0 10^3/ul Nucleated RBC % 0.0 D-Dimer, Quantitative (Less Than 230) ng/mL Sodium 140 (135-145) mmol/L Potassium 4.1 (3.5-5.0) mmol/L Chloride 106 (101-111) mmol/L Carbon Dioxide 27 (22-32) mmol/L Anion Gap 7 (2-11) mmol/L BUN 20 (6-24) mg/dL Creatinine 0.82 (0.51-0.95) mg/dL Est GFR ( Amer) 84.9 (>60) Est GFR (Non-Af Amer) 70.2 (>60) BUN/Creatinine Ratio 24.4 H (8-20) Glucose 101 H (70-100) mg/dL Lactic Acid 0.4 L (0.5-2.0) mmol/L Calcium 9.9 (8.6-10.3) mg/dL Total Bilirubin 0.60 (0.2-1.0) mg/dL AST 19 (13-39) U/L ALT 19 (7-52) U/L Alkaline Phosphatase 79 (34-104) U/L Troponin I 0.00 (<0.04) ng/mL Total Protein 6.8 (6.4-8.9) g/dL Albumin 4.5 (3.2-5.2) g/dL Globulin 2.3 (2-4) g/dL Albumin/Globulin Ratio 2.0 (1-3) / Range/Units 15:37 WBC (3.5-10.8) 10^3/uL RBC (3.70-4.87) 10^6 /uL Hgb (12.0-16.0) g/dL Hct (35-47) % MCV (80-97) fL MCH (27-31) pg MCHC (31-36) g/dL RDW (10-15) % Plt Count (150-450) 10^3/uL MPV (7.4-10.4) fL Neut % (Auto) % Lymph % (Auto) % [place] % (Auto) % Eos % (Auto) % Baso % (Auto) % Absolute Neuts (auto) (1.5-7.7) 10^3/ul Absolute Lymphs (auto) (1.0-4.8) 10^3/ul Absolute Monos (auto) (0-0.8) 10^3/ul Absolute Eos (auto) (0-0.6) 10^3/ul Absolute Basos (auto) (0-0.2) 10^3/ul Absolute Nucleated RBC 10^3/ul Nucleated RBC % D-Dimer, Quantitative < 200 (Less Than 230) ng/mL Sodium (135-145) mmol/L Potassium (3.5-5.0) mmol/L Chloride (101-111) mmol/L Carbon Dioxide (22-32) mmol/L Anion Gap (2-11) mmol/L BUN (6-24) mg/dL Creatinine (0.51-0.95) mg/dL Est GFR ( Amer) (>60) Est GFR (Non-Af Amer) (>60) BUN/Creatinine Ratio (8-20) Glucose (70-100) mg/dL Lactic Acid (0.5-2.0) mmol/L Calcium (8.6-10.3) mg/dL Total Bilirubin (0.2-1.0) mg/dL AST (13-39) U/L ALT (7-52) U/L Alkaline Phosphatase (34-104) U/L Troponin I (<0.04) ng/mL Total Protein (6.4-8.9) g/dL Albumin (3.2-5.2) g/dL Globulin (2-4) g/dL Albumin/Globulin Ratio (1-3) Result Diagrams: 01/13/19 15:37 01/13/19 15:37 Lab Statement: Any lab studies that have been ordered have been reviewed, and results considered in the medical decision making process. - Radiology CXR Radiology Interpretation Completed By: Radiologist Summary of Radiographic Findings: CXR IMPRESSION: NO ACTIVE CARDIOPULMONARY DISEASE. This report was reviewed by Dr. Jacob. - Ultrasound VENOUS DOPPLER STUDY LLE Ultrasound Interpretation Completed By: Radiologist Summary of Ultrasound Findings: VENOUS DOPPLER STUDY LLE IMPRESSION: NO LEFT LOWER EXTREMITY DEEP VEIN THROMBOSIS. THIS REPORT WAS REVIEWED BY DR. JACOB. - EKG 1500 Cardiac Rate: NL - RATE OF 85 BPM EKG Rhythm: Sinus Rhythm Summary of EKG Findings: EKG showed sinus rhythm with rate of 85 BPM, ventricular premature complex, no STEMI. Disposition - Course Course Of Treatment: Patient is a 63 y/o F presenting to ED with complaints of left anterior chest pain. She reports that she had one episode yesterday of the chest pain which lasted 10-15 minutes. Radiation of pain down left arm is noted as well. Chest pain was not pleuritic. Today, she had another episode around 0430 this morning, noting she was awoken from sleep with Sx. Episode lasted 20 minutes and spontaneously resolved. SOB is denied. She notes that she had left calf pain as well which is resolved. No cough, no fevers reported. She denies FMHx of SC. No Hx of HLD or diabetes, but endorses Hx of HTN. On physical exam, symmetric calves and no tenderness noted. CXR IMPRESSION: NO ACTIVE CARDIOPULMONARY DISEASE. VENOUS DOPPLER STUDY LLE IMPRESSION: NO LEFT LOWER EXTREMITY DEEP VEIN THROMBOSIS. EKG showed sinus rhythm with rate of 85 BPM, ventricular premature complex, no STEMI. Labs showed MCH 33, MPV 7.3, D-Dimer < 200, BUN/creatinine ratio 24.4, glucose 101, lactic acid 0.4. Trop 0. [address] Romero, states that the patient can have outpatient stress test. 1806 Dr. Romero notes that the patient should take felodipine daily, stop taking your celebrex. Patient to be discharged to home and to have outpatient stress test in next 48 hours and PCP follow up. - Diagnoses Provider Diagnoses: Chest pain - Physician Notifications Discussed Care Of Patient With: Carole Romero Time Discussed With Above Provider: 17:25 Instructed by Provider To: Other - [address] Romero, states that the patient can have outpatient stress test. 180 Dr. Romero notes that the patient should take felodipine daily, stop taking your celebrex. Discharge - Sign-Out/Discharge Documenting (check all that apply): Patient Departure - discharge Patient Received Moderate/Deep Sedation with Procedure: No - Discharge Plan Condition: Stable Disposition: HOME Patient Education Materials: Chest Pain (ED) Referrals: Kyra De Leon MD [Primary Care Provider] - 5 Days Additional Instructions: Take your felodipine daily, stop taking your celebrex. Have an outpatient stress test in 48 hours. Please return to ED for any new or worsening symptoms, follow up with your primary care physician within five days. - Attestation Statements Document Initiated by Scribe: Yes Documenting Scribe: MARIUSZ BARRIOS Provider For Whom Scribe is Documenting (Include Credential): MARCEL JACOB MD Scribe Attestation: I, MARIUSZ BARRIOS, scribed for MARCEL JACOB MD on 01/13/19 at 1928. Status of Scribe Document: Ready
--- NOTE | 2019-01-13 19:19 | CONS ---
CC: Dr. De Leon * CONSULTATION REPORT: DATE OF CONSULT: 01/13/19 PRIMARY CARE PROVIDER: Dr. De Leon. CHIEF COMPLAINT: Chest pain. HISTORY OF PRESENT ILLNESS: Ms. Nelson is a 63-year-old female who has a history of hypertension, distant history of atrial fibrillation with no recurrence, who presented to the emergency room with complaints of 2 episodes of chest pain. The first episode was yesterday afternoon. She was sitting in a chair at rest when she suddenly developed what she describes as a lightning bolt sharp shooting pain in her chest. It was very short-lived. She had no other symptoms yesterday. At approximately 4:30 to 5 o'clock in the morning on the day of admission, the patient woke up and suddenly again felt sharp lightning bolt shock of pain. It quickly repeated x1. The pain did not last. These were also both short-lived. She had no other associated symptoms. At noon, on the day of admission, the patient was walking around to get a trail at [facility], [place] and she did develop shortness of breath. She was walking her dog at this time. She does state that she typically does not get short of breath with doing so. About 1 hour after getting home, she noted that her left arm began to feel heavy and slightly numb. She is completely pain-free and back to normal at this point. The patient had a stress test years ago when she was being evaluated for her AFib. This was reportedly normal. PAST MEDICAL HISTORY: 1. RLS. 2. Atrial fibrillation. 3. OA. 4. Hypertension. PAST SURGICAL HISTORY: Appendectomy. MEDICATIONS: 1. Felodipine 5 mg p.o. daily. 2. Tylenol Extra Strength 1000 mg p.o. q.6 hours p.r.n. pain. 3. Celebrex 100 mg p.o. daily p.r.n. pain. 4. Multivitamin 1 tab p.o. daily. FAMILY HISTORY: Mom of an NC at the age of 89. Dad around the age of 83 of prostate cancer. SOCIAL HISTORY: The patient is a former smoker. She quit in 1983. She does admit to drinking one-half bottle of wine per day. 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 She is not . She has 2 children. Her son, Abdullahi, is her healthcare proxy. REVIEW OF SYSTEMS: A complete 11-system review of systems is obtained. Pertinent positives and negatives are as HPI and in addition, the patient did recently travel to [place], but has no lower extremity edema. She also admits to loose stools today, but otherwise they have been normal. The rest of the review of systems is negative. PHYSICAL EXAM: Blood pressure 157/97, pulse 64, respirations 16, temp 98.1, O2 sat 98% on room air. General: The patient is a well-developed, middle-aged female seen lying flat in the bed, in no acute distress. HEENT: Pupils are equal and round. Extraocular muscles are intact. Oropharynx is clear. Oral mucosa is moist. There is no submandibular, cervical, or supraclavicular adenopathy. Cardiac: Normal S1, S2. Regular rate and rhythm. There is a 3/6 systolic murmur heard best at the right upper sternal border. There is no lower extremity edema. Pulmonary: Lungs are clear to auscultation bilaterally. Abdomen: Bowel sounds are present. Abdomen is soft, nontender, nondistended. Musculoskeletal: There is no cyanosis or clubbing of the digits. There is full active range of motion of all 4 extremities. Skin is warm and dry. There are no rashes. Neuro: Cranial nerves II through XII are grossly intact. Sensation is intact to light touch throughout. Strength is 5/5 and symmetric in both upper and lower extremities bilaterally. Psych: The patient is alert. She is oriented x3. Affect appears appropriate. DIAGNOSTIC STUDIES/LAB DATA: WBC 5.9, hemoglobin 13.8, hematocrit 39, platelets 262. D-dimer less than 200. Sodium 140, potassium 4.1, chloride 106 , CO2 of 27, BUN 20, creatinine 0.82, glucose 101, lactic acid 0.4, calcium 9.9. Bilirubin 0.6, AST 19, ALT 19, alk phos 79. Troponin 0. Albumin 4.5. EKG reveals normal sinus rhythm with PVC and slight ST depression noted in leads I and II. There was slight depression on an old EKG from 2008 in those leads. Chest x-ray: No active cardiopulmonary disease. ASSESSMENT AND PLAN: Ms. Nelson is a 63-year-old female with a history of hypertension, distant history of atrial fibrillation and smoking, who presents to the emergency room with complaints of chest pain. 1. Chest pain. The sharp lightning bolt-type pain is not concerning for acute coronary syndrome. It is very atypical. I am more concerned about the shortness of breath that the patient developed while walking and the arm discomfort. At this point, however, the patient's JOSEFINA risk score is at most 1 for 2 episodes of chest pain. I do feel that she could be discharged home after being ruled out for an acute coronary syndrome and return for an outpatient stress test. I discussed the option of admission and having the stress test done tomorrow morning versus discharge and coming back at a later date for the stress test and the patient is opting for the latter option. The patient has been instructed that if she develops any further shortness of breath or chest pain or any other concerning symptoms, she should immediately return to the emergency room for evaluation. The patient knows that she needs to stay to have another troponin drawn at 1800. If this troponin is negative, the patient will be discharged and follow up for an outpatient stress test. I am also recommending that the patient discontinue her Celebrex use. 2. Hypertension. The patient's blood pressure is under okay control. Her pressures have been mildly elevated. I do recommend that she take her felodipine on a daily basis and not as needed. She should follow up with her primary care provider to ensure her blood pressure comes under appropriate control. TIME SPENT: Fifty minutes was spent on this consultation. [id number]/[facility] #: [id number] NICOLE
[2019-01-13 19:44] VITALS: BP 156/94
== END 2019-01-13 19:37 | disposition home or self-care (01) ==
LOC: ED 14:55
DX: R07.9 Chest pain, unspecified (principal); I10 Essential (primary) hypertension; I48.91 Unspecified atrial fibrillation; Z79.899 Other long term (current) drug therapy; Z87.891 Personal history of nicotine dependence
CPT/HCPCS: 36415; 71045; 80053; 83605; 84484; 85025; 85379; 93005; 99283

== ENCOUNTER → 2019-03-03 | Day surgery (SDC) | payer BC, MEDICARE ==
[~2019-03-03] MED LIST: Acetaminophen IV 1GM/100ML * 1,000 MG/100 ML VIAL IVPB ONE; Betamethasone INJ* 6 MG/ML 5 ML VIAL (30 MG) ONE; Buffered Lidocaine 1% SYRIN* 1 ML/SYRINGE INTRADERM ONE; Bupivacaine 0.25% SDV PF* 10 ML VIAL INJ ONE; DiMENhydriNATE IV* 50 MG/ML VIAL IV PUSH PRN; HYDROcodone/ACETAMIN 5-325 MG* 1 TAB ONE; Ketorolac INJ* 30 MG/ML 1 ML VIAL ONE; Lactated Ringers 1000 ML Bag* 1,000 ML IV SCH; Lidocaine 1% INJ* 10 MG/ML 30 ML SDV ONE; Lidocaine 2% PF * 5 ML VIAL ONE; Midazolam* 1 MG/ML 2 ML VIAL (2 MG) ONE; Naloxone* 0.4 MG/ML 1 ML VIAL IV PRN; Ondansetron INJ* 2 MG/ML VIAL IV PRN; Propofol* 10 MG/ML 20 ML BTL ONE; Sodium Citrate/Citric Acid* 15 ML UDC ONE; Sodium Citrate/Citric Acid* 15 ML UDC PO ONE; ceFAZolin 2 GM in NS PREMIX(*) 2 GM/100 ML BAG IVPB ONE; fentaNYL* 50 MCG/ML 2 ML VIAL (100 MCG VIAL) ONE
[2019-03-03] MEDS: fentaNYL* 50 MCG/ML 2 ML VIAL (100 MCG VIAL) IV PRN ×4 (10:20→10:52)
[2019-03-03 11:36] VITALS: BP 131/87
--- NOTE | 2019-03-03 13:01 | OP ---
DATE OF OPERATION: 03/03/19 - [facility] DATE OF : 53 SURGEON: Blaine Garcia MD ACADEMIC SUPPORT COORDINATOR: JEANNE Roe. An timber management assistant was needed for the entirety of the procedure to aid in positioning of the arm and retraction. ANESTHESIOLOGIST: Dr. Murguia. ANESTHESIA: General. PRE-OP DIAGNOSES: 1. Left stage III to IV basal joint arthritis. 2. Right thumb stage IV basal joint arthritis. 3. Left second tarsometatarsal joint foot arthritis. POST-OP DIAGNOSES: 1. 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 2. Right thumb stage IV basal joint arthritis. 3. Left second tarsometatarsal joint foot arthritis. OPERATIVE PROCEDURE: 1. Left thumb carpometacarpal arthroplasty with trapeziectomy. 2. Left partial trapeziectomy. 3. Left distally based split flexor carpi radialis tendon transfer for thumb suspension and tendon interposition. 4. Right thumb carpometacarpal joint corticosteroid injection with 2 mL of 1% lidocaine and 12 mg of betamethasone. 5. Left foot second tarsometatarsal joint corticosteroid injection with 2 mL of 1% lidocaine and 12 mg of betamethasone. INDICATIONS: Ms. Nelson is 64. She has very severe basal joint arthritis bilaterally, wanted to proceed with surgery on the left. Additionally, we are going to do the steroid shot on the right and she has also arthritis in the left mid foot and so we talked about doing a steroid injection there. We talked about risks and benefits of all the procedures, she wanted to proceed. ESTIMATED BLOOD LOSS: 2 mL. COMPLICATIONS: None. FINDINGS: See above and below. DESCRIPTION OF PROCEDURE: Ms. Nelson was seen in the preoperative holding area. The correct site, side, and procedure were identified. We came back to the operating room. The arm was prepped and draped in the usual fashion. A time-out was performed. Prior to draping, I had cleaned off the dorsum of the left foot with alcohol. I had then used mini C-arm image guidance to insert a 25-gauge needle into the second tarsometatarsal joint. I then infiltrated 2 mL of 1% lidocaine and 12 mg of betamethasone, again into the left second tarsometatarsal joint in the foot. I then came to the right hand and I injected the right thumb carpometacarpal joint with 2 mL of 1% lidocaine and 12 mg of betamethasone. Band-Aid were applied over both injection sites. After we had prepped and draped the left arm, the arm was exsanguinated with the Esmarch and the tourniquet was inflated to 250 mmHg. I first made a longitudinal 2 cm incision over the dorsum of the left thumb CMC joint. Dissection was carried down and care was taken to preserve the dorsal sensory nerve. The radial artery was mobilized and dissected free and retracted out of the way. I then raised subperiosteal and capsular flaps to expose the dorsum of the trapezium, and there was a very large bony ossicle there that was excised also. The [place] blade was used to release the soft tissue around the margins of the trapezium. The rongeur was then used to excise the trapezium with all the associated ossicles and osteophytes in piecemeal fashion. I continued this until everything was completely released. The FCR tendon was preserved in the base of the wound. After the trapezium was entirely excised, I examined the scaphotrapezoid joint. There was no articular cartilage left on the distal pole of the scaphoid. I used the osteotome to excise the proximal 3 mm of trapezoid. This was taken out in one nice layer. There was no fracturing of the trapezoid bone. This was taken out all the way over to the capitate. Great care taken to make sure we had preserved a nice base between the distal pole of the scaphoid and the proximal trapezoid. Once everything was looking good, I irrigated out the wound copiously, then placed a good layer of bone wax over all the cancellous bed to try to prevent bleeding and bony regrowth. I then continued on with the carpometacarpal arthroplasty by placing a bone tunnel from the dorsal radial thumb metacarpal base exiting out the volar-ulnar articular surface near the insertion of the FCR tendon. I then came 1 cm proximal to the wrist crease and made a 1 cm transverse incision over the distal FCR tendon. The sheath was released. The tendon was pulled up out of the wound and then split longitudinally with a 15 blade. A 26-gauge wire was passed into the tendon split. I then came out 7 to 8 cm proximal to that incision and made a second 1 cm transverse incision and then even more proximally a third transverse incision, and the entirety of the FCR tendon sheath was released. A Oxana clamp was used to to retrieve the 26-gauge wire in the distal wound and pulled out into the proximal 2 incisions releasing half the FCR tendon at the musculotendinous junction. The muscular remnants were removed off the end of the FCR tendon tail and then the tail was secured from fraying with a 3-0 Ethibond suture. The two 26-gauge wires were used to shuttle the FCR tendon tail down into the thumb base wound. The tendon was split was completed all the way down to the base of the second metacarpal at its insertion. A 26-gauge wire was used to shuttle the tendon through the bone tunnel and the back around the intact to limb of the FCR. Maximum tension was set as 3 [id number] 3-0 Ethibond sutures were placed, the first sewing all 3 limbs of the the tendon transfer together and then the second 2 sewing intact limb to intact limb. At this point, the thumb was suspended very nicely. I did go ahead and take the remainder of my tendon tail and sewed into a mat using the Ethibond suture. The mat was docked as an interposition between the proximal trapezoid and the distal pole of the scaphoid. It fit very nicely and was very secure. The remainder of the tendon tail was placed in the side of the trapeziectomy. The wound was irrigated out. The capsule was closed and sewn down over the base of the first metacarpal with some 4-0 Vicryl suture. The skin was closed with 4-0 nylon suture. 0.25% plain Marcaine was infiltrated all about the operative areas. The wounds were dressed with Xeroform, 4x4's, sterile Webril, and then a thumb spica splint with the IP joint free was applied. She was woken up and taken to the recovery room in stable condition. [id number]/[facility] #: [id number] [facility]ITAL[facility]
== END | disposition home or self-care (01) ==
LOC: OR 05:36
PROVIDERS: ATTEND Orthopaedic Surgery Hand Surgery
DX: M18.0 Bilateral primary osteoarthritis of first carpometacarpal joints (principal); M19.072 Primary osteoarthritis, left ankle and foot; I10 Essential (primary) hypertension; E03.9 Hypothyroidism, unspecified; I48.91 Unspecified atrial fibrillation; F41.8 Other specified anxiety disorders; Z87.891 Personal history of nicotine dependence
CPT/HCPCS: 76000; 88304; 88311; A9270-GY; J0690; J0702; J1885; J2250; J2704; J3010; J3490

== ENCOUNTER 2023-06-17 08:54 | Observation (INO) ==
[2023-06-17 09:53] LABS: Urine Appearance Clear; Urine Bilirubin Negative (Negative); Urine Blood 2+ (Negative); Urine Color Yellow; Urine Glucose Negative (Negative); Urine Ketones Negative (Negative); Urine Nitrite Negative (Negative); Urine Protein Negative (Negative); Urine Specific Gravity 1.009 (1.002-1.030); Urine Urobilinogen Negative (Negative)
[2023-06-17 09:57] LABS: Urine Bacteria Absent (Absent); Urine Red Blood Cell Trace(0-2/hpf) (Absent); Urine Squamous Epithelial Cell Present (Absent); Urine White Blood Cell Trace(0-5/hpf) (Absent)
[2023-06-17 10:15] LABS: ABS Basophils 0.1 10^3/uL (0.0-0.1); ABS Eosinophils 0.1 10^3/uL (0.0-0.5); ABS Lymphocytes 1.2 10^3/uL (1.0-4.8); ABS Monocytes 0.5 10^3/uL (0.0-0.9); ABS Neutrophils 2.9 10^3/uL (1.5-7.6); ABS Nucleated RBC 0.01 10^3/ul; Eosinophil % 2.1 %; Hematocrit 38.8 % (35-45); Hemoglobin 13.1 g/dL (11.5-14.3); Lymphocyte % 25.9 %; Mean Corpuscular Hgb Conc 33.9 g/dL (31-36); Mean Corpuscular Volume 94.5 fL (80-97); Nucleated Red Blood Cells % 0.1 %/100WBC (0.0-0.8); Platelet Count 238 10^3/uL (150-450); White Blood Count 4.8 10^3/uL (3.8-11.8)
[2023-06-17 10:37] LABS: INR 0.94 (0.83-1.13)
[2023-06-17 10:39] LABS: High Sens Troponin Baseline < 3 pg/mL (<15)
[2023-06-17 10:47] LABS: ALT 22 U/L (7-52); AST 22 U/L (13-39); Albumin 4.5 g/dL (3.2-5.2); Alkaline Phosphatase 69 U/L (35-149); Anion Gap 8 mmol/L (2-16); Blood Urea Nitrogen 14 mg/dL (6-24); CO2 Carbon Dioxide 30 mmol/L (22-32); Calcium 9.2 mg/dL (8.6-10.3); Chloride 102 mmol/L (101-111); Creatinine, Serum 0.93 mg/dL (0.51-0.95); Globulin 2.3 g/dL (2-4); Glucose 113 mg/dL (70-100); Sodium 140 mmol/L (135-145); Total Bilirubin 0.3 mg/dL (0.2-1.0); Total Protein 6.8 g/dL (6.4-8.9); eGFR CKD-EPI 66.5 (>60)
[2023-06-17] MEDS ORDERED: Iohexol 350 (CONTRAST) 500 ML MDV IV ONE (10:50)
[2023-06-17 11:56] LABS: High Sensitivity Troponin 1 Hr < 3 pg/mL (<15)
[2023-06-17] MEDS ORDERED: Enoxaparin 40 MG/0.4 ML SYR SUBCUT SCH (13:00)
[2023-06-17 13:58] LABS: Cholesterol 127 mg/dL; HDL Cholesterol 51.1 mg/dL; LDL Cholesterol 56 mg/dL; Triglycerides 100 mg/dL
[2023-06-17] MEDS ORDERED: Aspirin EC 81 mg TAB.EC (enteric coated) PO SCH (14:00)
[2023-06-17] MEDS: DULoxetine DR 30 mg CAP PO SCH (21:28)
[2023-06-17] MEDS: Enoxaparin 40 MG/0.4 ML SYR SUBCUT SCH ×3 (21:29→22:05)
[2023-06-17] MEDS: Latanoprost 0.005% 2.5 ml BTL BOTH EYES SCH (21:35)
[2023-06-18] MEDS: DULoxetine DR 30 mg CAP PO SCH ×2 (08:44→21:30)
[2023-06-18] MEDS ORDERED: Iohexol 350 (CONTRAST) 500 ML MDV IV ONE (13:00)
[2023-06-18] MEDS: Enoxaparin 40 MG/0.4 ML SYR SUBCUT SCH (21:30)
[2023-06-18] MEDS: Latanoprost 0.005% 2.5 ml BTL BOTH EYES SCH (21:31)
[2023-06-19] MEDS: DULoxetine DR 30 mg CAP PO SCH (09:32)
[2023-06-19 14:15] VITALS: BP 140/90
== END 2023-06-19 15:20 | disposition home or self-care (01) ==
LOC: EDHOLD 08:54 → ED 08:54 → SUATTDRO 12:56 → MEDTELE 15:13
PROVIDERS: ADMIT Hospitalist; ATTEND Internal Medicine